=== PATIENT | male | born 1950 | race Two or more races ===

== ENCOUNTER 2024-03-30 11:51 | Emergency (ER) | payer OTHER, SELFPAY ==
[2024-03-30 12:09] VITALS: BP 146/81; PULSE 77; RESP 19; TEMP 36.7; O2SAT 100; BMI 23.3
[2024-03-30 12:39] VITALS: PULSE 84; RESP 18; O2SAT 97; BMI 23.3
--- NOTE | 2024-03-30 12:55 | PC.NURSE ---
Pt. here from home to room 15, pt. states he has been unable to urinate for 2 days, per pt. his son in law put in a cheney on Tuesday for pt. and removed it yesterday, pt. states he has been unable to urinate since. Pt. abdomen is round and distended. Pt. states that he is bed bound. Pt. states he has had a previous heart attack that left him with tremors.
--- NOTE | 2024-03-30 13:00 | EDNOTE_ITS ---
ED Male Genitalurinary RME/HPI General Chief complaint: Urogenital-Male Stated complaint: CAN'T URINATE Time Seen by Provider: 03/30/24 12:19 Arrival date/time: 03/30/24 11:51 RME / HPI RME / HPI Narrative: 74 year old male with history of HFrEF 35% 02/2022, diabetes, hypertension, hyperlipidemia, chronic back pain, sleep apnea, BPH, gout presents to the ED BIBA from home for evaluation of urinary retention and suprapubic abdominal pain beginning yesterday and worsening today. Per medics, family on scene reported 2 days ago Tuesday patient had difficulty urinary and inserted a cheney catheter with relief. However, the catheter was removed yesterday and since then the patient is unable to urinate. Accompanied by suprapubic abdominal pain, described as pressure in sensation, rating as moderate. No other associated symptoms or complaints. Denies fevers. Related Data Home Medications ?Medication ?Instructions ?Recorded ?Confirmed hydrocodone 7.5 mg-acetaminophen 1 tab PO TID PRN Pain 02/24/22 12/27/22 325 mg tablet amiodarone 200 mg tablet 200 mg PO DAILY 08/06/22 12/27/22 finasteride 5 mg tablet 5 mg PO QDAY 08/06/22 12/27/22 hydrochlorothiazide 12.5 mg tablet 12.5 mg PO QAM 08/06/22 12/27/22 baclofen 10 mg tablet 10 mg PO QDAY PRN Muscle Spasm 12/20/22 12/27/22 docusate sodium 100 mg capsule 100 mg PO BID 12/20/22 12/27/22 levetiracetam 750 mg tablet 750 mg PO BID 12/20/22 12/27/22 spironolactone 25 mg tablet 25 mg PO BID 12/20/22 12/27/22 Previous Rx's ?Medication ?Instructions ?Recorded tamsulosin 0.4 mg capsule (Flomax) 0.4 mg PO QDAY #30 caps 07/09/22 amoxicillin 875 mg-potassium 1 tab PO BID #14 tabs 12/20/22 clavulanate 125 mg tablet cephalexin 500 mg capsule 500 mg PO QID #28 caps 04/30/23 ondansetron 8 mg disintegrating 8 mg PO Q8H PRN nausea and 04/30/23 tablet vomiting #20 tabs levofloxacin 500 mg tablet 500 mg PO Q24H 5 days #5 tabs 03/30/24 Allergies Allergy/AdvReac Type Severity Reaction Status Date / Time metformin Allergy Severe CAUSED Verified 12/27/22 08:50 KIDNEY FAILURE Review of Systems Review of Systems Narrative Review of Systems: Gen: No fever, no chills, no weight loss EYES: No discharge, no visual changes, no pain HEENT: No ear pain, no congestion, no sore throat PULM: no shortness of breath, no cough, no congestion CV: No chest pain, no dyspnea on exertion, no palpitations, no chest tightness GI: No nausea, no vomiting, no diarrhea, +pain, no constipation : +urinary retention. No frequency, no urgency,? no dysuria Musc/skel: No joint pain, no back pain Skin: No rash, no ecchymosis, no lesions Neuro: No weakness, no headache Past Medical History Past Medical History NEUROLOGIC: Positive Seizures CARDIAC: Positive Cardiac Disorders, Hypercholesterolemia, Congestive Heart Failure, Edema and Hypertension RESPIRATORY: Positive Pneumonia and Sleep Apnea GASTROINTESTINAL: Positive Gastrointestinal Disorders, Gastroesophageal Reflux Disease and Obesity GENITOURINARY: Positive Genitourinary Disorders, Renal Disease and Benign Prostatic Hyperplasia MUSCULOSKELETAL: Positive Musculoskeletal Disorders, Arthritis and Gout ENDOCRINE: Positive Endocrine Disorders and Diabetes Mellitus Type 2 OTHER HISTORY: Positive Hospitalization, Falls, Chemotherapy and Cancer Family History FAMILY HISTORY: Positive Family Cardiac Disorders and Family Cancer Surgical History SURGICAL: Positive Eye Surgery and Abdominal Surgery Social History SMOKING STATUS: Never smoker SUBSTANCE USE: does not use OCCUPATION: retired audio video mechanic ED Exam Narrative Physical exam: GENERAL APPEARANCE: AxOx4, nontoxic appearing HEENT: NC, AT. MMM. EOMI, clear conjunctiva, oropharynx clear. NECK: Supple without lymphadenopathy. No stiffness or restricted ROM. HEART: Normal rate and regular rhythm, normal S1/S1, no m/r/g LUNGS: CTAB, moving air well. No crackles or wheezes are heard. ABDOMEN: Soft, suprapubic fullness and tenderness, good bowel sounds heard. BACK: No midline C/T/L spine pain or deformity, No CVAT, no obvious deformity. EXTREMITIES: Without cyanosis, clubbing or edema. MUSCULOSKELETAL: FROM of all major joints, no chest tenderness NEUROLOGICAL: Grossly nonfocal. Alert and oriented, moving all 4 extremities. CN not formally tested but appear grossly intact. Skin: Warm and dry without any rash. Course Quality Measures none Orders Category Date Time Status Cheney to [facility] Routine Care 03/30/24 12:18 Ordered Urinalysis Stat Lab 03/30/24 12:54 Completed Reevaluation(s) Reevaluation #1: Patient had improvement after cheney catheter. We reviewed all the results, analysis, and treatment plans. Patient is amenable to discharge. Strict return precautions were outlined. Patient was discharged in stable condition. Time: 14:25 Vital Signs Vital signs: Vital Signs Temperature 98.1 F 03/30/24 12:09 Pulse Rate 77 03/30/24 12:09 Respiratory Rate 19 03/30/24 12:09 Blood Pressure 146/81 H 03/30/24 12:09 Pulse Oximetry (%) 100 03/30/24 12:09 Oxygen Delivery Method Room Air 03/30/24 12:09 Pulse ox is 100% on room air which is adequate. Urogenital - Male MDM Narrative MDM Narrative:: Aubrie Richardson am scribing for and in the presence of Dr. Canales. Patient data External records reviewed:: [facility] previous records (I reviewed ED visit on 04/30/2023) and EMS form Clinical information provided by:: patient and EMS Social determinants that could affect healthcare access:: none Patient has the following chronic illnesses:: HFrEF 35% 02/2022, diabetes, hypertension, hyperlipidemia, chronic back pain, sleep apnea, BPH, gout How is presenting disease/condition affected by chronic disease/condition?: exacerbated by Evaluation data The following diagnostics were reviewed and interpreted by me:: lab results Lab and/or radiology exams considered but not ordered:: None Interpretation Summary: As noted above Medications / Prescriptions Medications or Prescriptions considered but not ordered:: none Medication administrations:: None Consultations Consultation(s) initiated? (list below): No Diagnosis Urogenital Male Differential Diagnosis: urinary tract infection, prostatitis and acute retention of urine Most likely diagnosis given after review of the tests above:: Acute on chronic urinary retention UTI Admission Indicated Admission indicated?: not indicated Admission Request Was there a request for admission?: No Disposition Plan Disposition Plan: Discharge Discharge Attestation Discharge Attestation: The patient and all family members were given an opportunity to ask questions and understood the discharge instructions. Discharge instructions specifically effects, indications for sooner follow up or return to the emergency department, and the expected course of current diagnosis. Patient condition: Stable Discharge Plan Plan Patient Disposition: HOME (Self Care) Prescriptions/Referrals Prescriptions/Med Rec: New levofloxacin 500 mg tablet 500 mg PO Q24H 5 Days Qty: 5 0RF No Action hydrocodone-acetaminophen 7.5-325 mg tablet 1 tab PO TID PRN (Reason: Pain) Patient Comments: TAKE 1 TABLET BY MOUTH EVERY 6 HOURS NEEDED FOR 30 DAYS tamsulosin [Flomax] 0.4 mg capsule 0.4 mg PO QDAY Qty: 30 0RF amiodarone 200 mg tablet 200 mg PO DAILY Patient Comments: TAKE 1 TABLET BY MOUTH EVERY DAY hydrochlorothiazide 12.5 mg Tablet 12.5 mg PO QAM finasteride 5 mg Tablet 5 mg PO QDAY baclofen 10 mg Tablet 10 mg PO QDAY PRN (Reason: Muscle Spasm) docusate sodium 100 mg capsule 100 mg PO BID Patient Comments: TAKE 1 CAPSULE BY MOUTH TWICE DAILY NEEDED levetiracetam 750 mg Tablet 750 mg PO BID spironolactone 25 mg tablet 25 mg PO BID amoxicillin-pot clavulanate 875-125 mg tablet 1 tab PO BID Qty: 14 0RF cephalexin 500 mg capsule 500 mg PO QID Qty: 28 0RF ondansetron 8 mg tablet,disintegrating 8 mg PO Q8H PRN (Reason: nausea and vomiting) Qty: 20 0RF Problem List Clinical Impression: Acute on chronic urinary retention, UTI (urinary tract infection) Patient/Caregiver Discharge Instructions Education Materials: ED Cheney Catheter, Care, ED Urinary Retention, Male, ED Bladder Infection, Male (Adult) Additional Instructions: Follow-up with your primary care doctor in 2 to 3 days for recheck. You can return to the emergency department sooner if symptoms worsen or if he notes any new, concerning issues. Print Language: Kiswahili Stand Alone Forms: Radha Award Info., Patient Portal Info Letter MD Attestation Attestation The patient was seen by the PGY-2. I, the supervising physician, also encountered and examined the patient and remained throughout present during the entire ER visit. Deliberation with the PGY 2, workup, management, treatment, medical decision making, and documentation was formulated. I agree with the plan and documentation.
[2024-03-30 13:01] LABS: Collection Type, Urine Catheter; Squamous Epithelial Cell,Urine 0 /hpf (0-5)
[2024-03-30 13:26] LABS: Bilirubin,Urine Negative (Negative); Blood,Urine Negative (Negative); Clarity,Urine Clear (Clear/Hazy); Color,Urine Lt-Yellow (Lt Yel-Yel); Glucose, Urine Negative (Negative); Ketones,Urine Negative (Negative); Leukocyte Esterase,Urine Positive (Negative); Nitrite,Urine Positive (Negative); Protein,Urine Trace (Neg - Trace); RBC,Urine 3 /hpf (0-3); Specific Gravity,Urine 1.019 (1.001-1.035); Urobilinogen,Urine Negative mg/dL (0.0-1.0); WBC,Urine 84 /hpf (0-5)
[2024-03-30 15:40] VITALS: BP 129/70; PULSE 60; RESP 18; TEMP 36.6; O2SAT 98
== END 2024-03-30 15:40 | disposition home or self-care (01) ==
PROVIDERS: Emergency Provider Emergency Medicine
DX: N40.1 Benign prostatic hyperplasia with lower urinary tract symptoms (principal); R33.8 Other retention of urine; N39.0 Urinary tract infection, site not specified; E11.9 Type 2 diabetes mellitus without complications; I11.0 Hypertensive heart disease with heart failure; I50.22 Chronic systolic (congestive) heart failure; M10.9 Gout, unspecified
CPT/HCPCS: 51702; 81001; 99283

== ENCOUNTER → 2024-05-17 | Outpatient (BNVA) | payer OTHER, MEDICAID, SELFPAY | END | disposition home or self-care (01) | PROVIDERS: PCP Family Medicine; Referring Provider Family Medicine; Visit Provider Urology | DX: N40.1 Benign prostatic hyperplasia with lower urinary tract symptoms (principal); N13.8 Other obstructive and reflux uropathy; Z87.440 Personal history of urinary (tract) infections; E11.42 Type 2 diabetes mellitus with diabetic polyneuropathy; E78.5 Hyperlipidemia, unspecified; E66.9 Obesity, unspecified; Z68.38 Body mass index [BMI] 38.0-38.9, adult; F32.9 Major depressive disorder, single episode, unspecified; F41.9 Anxiety disorder, unspecified; I11.0 Hypertensive heart disease with heart failure; I50.9 Heart failure, unspecified; K21.9 Gastro-esophageal reflux disease without esophagitis; Z99.3 Dependence on wheelchair | CPT/HCPCS: 99203; G0463 ==

== ENCOUNTER 2024-08-11 18:16 | Emergency (ER) | payer OTHER, SELFPAY ==
[2024-08-11 18:20] VITALS: BP 130/75; PULSE 86; RESP 18; TEMP 36.5; O2SAT 95
[2024-08-11 18:21] VITALS: BMI 33.3
--- NOTE | 2024-08-11 18:56 | PD.EDABDPN ---
ED Abdominal Pain RME/HPI General Chief Complaint: Abdominal Pain Stated complaint: ABD PAIN Time seen by provider: 08/11/24 18:56 Arrival date/time: 08/11/24 18:16 This is a 74-year-old male that is brought in by ambulance with complaints of abdominal pain for the past few days and rash to left lower abdomen. Patient also complains of distention and no bowel movement for the past 3 days. Patient usually has about regular bowel movements. History of [place], seizures, , diabetes, hypertension, hyperlipidemia, chronic back pain, sleep apnea, BPH, gout. Patient denies any fever and chills. Patient denies any vomiting diarrhea. Patient complains of nausea. Patient states she has had a cough for the past few days. Related Data Home Medications ?Medication ?Instructions ?Recorded ?Confirmed hydrocodone 7.5 mg-acetaminophen 1 tab PO TID PRN Pain 02/24/22 05/17/24 325 mg tablet amiodarone 200 mg tablet 200 mg PO DAILY 08/06/22 05/17/24 finasteride 5 mg tablet 5 mg PO QDAY 08/06/22 05/17/24 hydrochlorothiazide 12.5 mg tablet 12.5 mg PO QAM 08/06/22 05/17/24 baclofen 10 mg tablet 10 mg PO QDAY PRN Muscle Spasm 12/20/22 05/17/24 docusate sodium 100 mg capsule 100 mg PO BID 12/20/22 05/17/24 levetiracetam 750 mg tablet 750 mg PO BID 12/20/22 05/17/24 spironolactone 25 mg tablet 25 mg PO BID 12/20/22 05/17/24 Previous Rx's ?Medication ?Instructions ?Recorded tamsulosin 0.4 mg capsule (Flomax) 0.4 mg PO QDAY #30 caps 07/09/22 cephalexin 500 mg capsule 500 mg PO TID 7 days #21 caps 08/11/24 sennosides 8.6 mg-docusate sodium 1 tab-cap PO BID PRN constipation 08/11/24 50 mg tablet (Senokot-S) #20 tabs Allergies Allergy/AdvReac Type Severity Reaction Status Date / Time metformin Allergy Severe CAUSED Verified 08/11/24 19:31 KIDNEY FAILURE Review of Systems Review of Systems Systems Reviewed: All systems reviewed, normal except as documented Past Medical History Past Medical History NEUROLOGIC: Positive Seizures CARDIAC: Positive Cardiac Disorders, Hypercholesterolemia, Congestive Heart Failure, Edema and Hypertension RESPIRATORY: Positive Pneumonia and Sleep Apnea GASTROINTESTINAL: Positive Gastrointestinal Disorders, Gastroesophageal Reflux Disease and Obesity GENITOURINARY: Positive Genitourinary Disorders, Renal Disease and Benign Prostatic Hyperplasia MUSCULOSKELETAL: Positive Musculoskeletal Disorders, Arthritis and Gout ENDOCRINE: Positive Endocrine Disorders and Diabetes Mellitus Type 2 OTHER HISTORY: Positive Hospitalization, Falls, Chemotherapy and Cancer Family History FAMILY HISTORY: Positive Family Cardiac Disorders and Family Cancer Surgical History SURGICAL: Positive Eye Surgery and Abdominal Surgery Social History SMOKING STATUS: Never smoker SUBSTANCE USE: does not use OCCUPATION: retired production maintenance mechanic ED Exam Narrative Physical exam: VITAL SIGNS: Reviewed. GENERAL APPEARANCE: Alert and interactive, follows commands, no acute distress HEAD AND FACE: Non-traumatic. ENT: PERRL, conjuctiva pink and clear, eyelid no trauma, Mucous membrane moist. NECK: Supple, nontender, no nuchal rigidity. CHEST: No tenderness, no crepitus, no paradoxical movement, no retractions. LUNGS: Clear, well ventilated, symmetric, no rales, no wheezing, no rhonchi, no stridor, good breath sounds bilaterally. HEART: Regular rate, regular rhythm, no murmur, no gallops. ABDOMEN: Soft, slightly distended, pain to the left lower abdomen. NEUROLOGICAL: Gross motor function intact sensory function intact, Appropriate for age. MUSCULOSKELETAL: low back nontender, full range of motion. EXTREMITIES: No redness no swelling no skin breakdown on bilateral foot and leg. Distal neurovascular status intact bilateral foot SKIN: Color pink, dry, crusted over lesion to left lower abdomen that wraps to his back, painful to touch Course Orders Category Date Time Status CT abdomen pelvis w con Stat Exams 08/11/24 21:18 Stop Req XR abdomen 1V Stat Exams 08/11/24 18:58 Completed XR chest 1V Stat Exams 08/11/24 18:58 Completed CBC Stat Lab 08/11/24 19:43 Completed Comprehensive Metabolic Panel Stat Lab 08/11/24 19:43 Completed Lipase Stat Lab 08/11/24 19:43 Completed Urinalysis, C/S if Indicated Stat Lab 08/11/24 19:55 Completed Urine Culture Stat Lab 08/11/24 19:55 Received Lactulose Syrup [Enulose Syrup] Med 08/11/24 22:53 Discontinued 20 gm PO X1 ONE Sodium Chloride 0.9% 500 ml [Ns] 500 ml Med 08/11/24 21:18 Discontinued IV 999 mls/hr cefTRIAXone [Rocephin] 1,000 mg Med 08/11/24 20:36 Discontinued Lidocaine 1% 20 ml [Xylocaine 1% 20 ML] 2.1 ml IM X1 cefTRIAXone/D5w 1gm IV premix [Rocephin/D5w 1gm IV Med 08/11/24 20:57 Discontinued premix] 1 gm in 50 ml IV X1 Vital Signs Vital signs: Vital Signs Temperature 97.7 F 08/11/24 18:20 Pulse Rate 86 08/11/24 18:20 Respiratory Rate 18 08/11/24 18:20 Blood Pressure 130/75 08/11/24 18:20 Pulse Oximetry (%) 95 08/11/24 18:20 Oxygen Delivery Method Room Air 08/11/24 18:20 Abdominal Pain MDM MDM Narrative MDM Narrative:: chest x ray: FINDINGS: Suspicious for early left base pneumonia Mild prominence left ventricle Right lung clear IMPRESSION: Suspicious for early left base pneumonia abdomen: FINDINGS: Mildly air distended stomach. Mild air in the colon and small bowel, no obstruction No free air IMPRESSION: Mildly air distended stomach. Mild small bowel ileus No obstruction Spoke to patient's daughter at bedside who is patient's air bag buffer. Patient has had this rash/shingles to left lower abdomen for over 1 week. Considered antiviral therapy but typically no benefit antiviral therapy once all lesions have crusted which they have. Did consider steroids. Patient continues to have pain to lower abdomen where lesions were located. Discussed case . Agrees patient can be dc home. Patient given a dose of lactulose and will be sent home with [facility] bathroom. Daughter and patient instructed to come back to emergency room if symptoms change or worsen. Medications / Prescriptions Medication administrations:: Medication Administration History Discontinued Medications Ceftriaxone Sodium 1,000 mg/ (Lidocaine HCl 2.1 ml) 0 mg IM X1 ONE Stop: 08/11/24 20:37 Last Admin: 08/11/24 21:00 Dose: Not Given Documented By: AMANDA Non-Admin Reason: Discontinued Ceftriaxone Sodium/Dextrose (Rocephin/D5w 1gm Iv Premix) 1 gm in 50 mls @ 100 mls/hr IV X1 ONE Stop: 08/11/24 21:26 Last Infusion: 08/11/24 21:38 Dose: Infused Documented By: Admin: 08/11/24 21:08 Dose: 100 mls/hr Documented By: AMANDA Sodium Chloride (Ns) 500 mls @ 999 mls/hr IV .Q31M ONE Stop: 08/11/24 21:48 Last Admin: 08/11/24 22:01 Dose: 999 mls/hr Documented By: AMANDA Lactulose (Lactulose Syrup 20 Gm/30 Ml Udc) 20 gm PO X1 ONE; Protocol Stop: 08/11/24 22:54 Discharge Plan Plan Patient Disposition: HOME (Self Care) Patient condition on transfer: Stable Prescriptions/Referrals Prescriptions/Med Rec: New cephalexin 500 mg capsule 500 mg PO TID 7 Days Qty: 21 0RF sennosides-docusate sodium [Senokot-S] 8.6-50 mg tablet 1 tab-cap PO BID PRN (Reason: constipation) Qty: 20 0RF No Action hydrocodone-acetaminophen 7.5-325 mg tablet 1 tab PO TID PRN (Reason: Pain) Patient Comments: TAKE 1 TABLET BY MOUTH EVERY 6 HOURS NEEDED FOR 30 DAYS tamsulosin [Flomax] 0.4 mg capsule 0.4 mg PO QDAY Qty: 30 0RF amiodarone 200 mg tablet 200 mg PO DAILY Patient Comments: TAKE 1 TABLET BY MOUTH EVERY DAY hydrochlorothiazide 12.5 mg Tablet 12.5 mg PO QAM finasteride 5 mg Tablet 5 mg PO QDAY baclofen 10 mg Tablet 10 mg PO QDAY PRN (Reason: Muscle Spasm) docusate sodium 100 mg capsule 100 mg PO BID Patient Comments: TAKE 1 CAPSULE BY MOUTH TWICE DAILY NEEDED levetiracetam 750 mg Tablet 750 mg PO BID spironolactone 25 mg tablet 25 mg PO BID Referrals: No Primary/Family,Physician [Primary Care Provider] - In 1 week Problem List Clinical Impression: Acute UTI, Pneumonia, Shingles, Constipation Patient/Caregiver Discharge Instructions Discharge Activity: activity as tolerated Education Materials: Treating Pneumonia, Shingles (Herpes Zoster), ED Bladder Infection, Male (Adult) Additional Instructions: Follow up with primary provider in 1-2 days. Come back to ED if symptoms change or worsen Print Language: Spanish Stand Alone Forms: Radha Award Info., Patient Portal Info Letter PA/MANAGER OF FINANCIAL Supervising Physician PA/MANAGER OF FINANCIAL Supervising Physician: [place]
--- NOTE | 2024-08-11 18:58 | XR_ITS ---
Examination: Abdomen AP single view Technique: AP portable supine abdomen, single view Exam date and time: August 11, 2024 1935 hours INDICATIONS: Abdominal distention today. FINDINGS: Mildly air distended stomach. Mild air in the colon and small bowel, no obstruction No free air IMPRESSION: Mildly air distended stomach. Mild small bowel ileus No obstruction
--- NOTE | 2024-08-11 18:58 | XR_ITS ---
Examination: AP chest single view Technique one AP portable semiupright chest single view Date and time: 12/11/2024 1934 hours Comparison August 06, 2022 INDICATION: Chest pain and coughing today. FINDINGS: Suspicious for early left base pneumonia Mild prominence left ventricle Right lung clear IMPRESSION: Suspicious for early left base pneumonia
[2024-08-11 19:10] VITALS: BP 134/74; PULSE 75; RESP 24; O2SAT 81
[2024-08-11 20:00] VITALS: BP 125/79; RESP 22; TEMP 36.6
[2024-08-11 20:00] LABS: Basophils % (Auto) 1 % (0-2.5); Eosinophils # (Auto) 0.1 Thou/mm3 (0.0-0.5); Eosinophils % (Auto) 2 % (0-10); Hematocrit 43.9 % (41.0-53.0); Hemoglobin 14.9 g/dL (13.5-16.0); Immature Granulocytes % (Auto) 0 % (0-0); Immature Granulocytes Auto 0.02 Thou/mm3 (0.00-0.00); Lymphocytes # (Auto) 0.9 Thou/mm3 (1.0-4.8); Lymphocytes % (Auto) 19 % (10-50); Mean Corpuscular HGB Conc 33.9 g/dl (31.0-37.0); Mean Corpuscular Hemoglobin 31.2 pg (25.0-35.0); Mean Corpuscular Volume 92 fL (80-100); Monocytes # (Auto) 0.4 Thou/mm3 (0.0-0.8); Monocytes % (Auto) 9 % (0-12); Neutrophils # (Auto) 3.5 Thou/mm3 (1.8-7.7); Neutrophils % (Auto) 69 % (37-80); Nucleated Red Blood Cell % 0 /100 WBC (0); Platelet Count 130 Thou/mm3 (140-440); Red Blood Count 4.78 Miln/mm3 (4.50-5.90)
[2024-08-11 20:03] LABS: Collection Type, Urine Voided
[2024-08-11 20:10] LABS: Bilirubin,Urine Negative (Negative); Blood,Urine 1+ (Negative); Clarity,Urine Turbid (Clear/Hazy); Color,Urine Yellow (Lt Yel-Yel); Glucose, Urine Negative (Negative); Ketones,Urine Negative (Negative); Leukocyte Esterase,Urine Positive (Negative); Nitrite,Urine Negative (Negative); PH,Urine 6.5 (5.0-7.0); Protein,Urine 1+ (Neg - Trace); RBC,Urine 24 /hpf (0-3); Squamous Epithelial Cell,Urine 2 /hpf (0-5); Urobilinogen,Urine Negative mg/dL (0.0-1.0); WBC,Urine 676 /hpf (0-5)
[2024-08-11 20:11] LABS: Culture Indicated,Urine Yes
[2024-08-11 20:30] LABS: Alanine Aminotransferase 8 U/L (10-49); Albumin, Serum 4.1 gm/dL (3.4-4.8); Albumin/Globulin Ratio 1.4 (1.2-2.2); Alkaline Phosphatase 91 U/L (46-116); Anion Gap 12 (7-16); BUN/Creatinine Ratio 12 Ratio (12-20); Bilirubin,Total 0.5 mg/dL (0.3-1.2); Blood Urea Nitrogen 19 mg/dL (9-23); Calcium 9.5 mg/dL (8.3-10.6); Calcium (Corrected) 9.5 mg/dL (8.5-10.1); Carbon Dioxide 23.4 mMol/L (20.0-31.0); Chloride 100 mMol/L (98-107); Creatinine (Component) 1.6 mg/dL (0.6-1.3); Estimated Creatinine Clearance 43.2 mL/min (>60); Globulin 2.9 gm/dL (2.3-3.5); Glucose 121 mg/dL (74-106); Osmolality,Calculated 273 (275-295); Potassium 4.4 mMol/L (3.4-5.1); Sodium 135 mMol/L (136-145); eGFR 45 See Note
[2024-08-11 21:00] VITALS: BP 126/69; PULSE 62; RESP 21
[2024-08-11] MEDS: cefTRIAXone/D5w 1gm IV premix 1 GM/50 ML BAG IV (21:08)
[2024-08-11 21:19] LABS: Lipase 30 U/L (12-53)
[2024-08-11 22:00] VITALS: BP 128/72; PULSE 60; RESP 17
[2024-08-11] MEDS: SODIUM CHLORIDE 0.9% 500 ML 500 ML 999 ML IV (22:01)
[2024-08-11 23:01] VITALS: BP 141/67; PULSE 60; RESP 11; TEMP 36.8
[2024-08-11] MEDS: LACTULOSE SYRUP 20 GM/30 ML UDC PO (23:11)
[2024-08-12 02:52] VITALS: BP 128/79; PULSE 80; RESP 18; O2SAT 98
== END 2024-08-12 02:41 | disposition home or self-care (01) ==
PROVIDERS: Nurse Practitioner Family; Emergency Provider Emergency Medicine
DX: K56.7 Ileus, unspecified (principal); K31.89 Other diseases of stomach and duodenum; J18.9 Pneumonia, unspecified organism; N39.0 Urinary tract infection, site not specified; B02.9 Zoster without complications
CPT/HCPCS: 36415; 71045; 74018; 80053; 81001; 83690; 85025; 87077; 87086; 87186; 96361; 96365; 99284; J0696; J7040; A9270

== ENCOUNTER 2025-02-22 16:23 | Emergency (ER) | payer OTHER, MEDICAID, SELFPAY ==
[2025-02-22 16:27] VITALS: BP 129/75; PULSE 94; RESP 16; TEMP 36.9; O2SAT 97
--- NOTE | 2025-02-22 16:41 | XR_ITS ---
Examination: CT abdomen and pelvis without contrast. Coronal 3-D reconstructions. Sagittal 2-D reconstructions. Date and time of exam: February 22, 2025, 1730 hours COMPARISON: April 30, 2023 INDICATIONS: Dysuria beginning 2 weeks ago, history bladder calculus CTDI: vol (mGy): 9.3 DLP: (mGycm): 521 Technique: Axial images of the abdomen have been obtained, 3 mm slice thickness Intravenous contrast material has not been administered. Low dose protocols were performed. One or more of the following dose reduction techniques were used; automated exposure control, adjustment of the mA and/or KV according to patient size, use of iterative reconstruction technique. Findings: Atelectasis in the lower lung zones No visualized liver lesions Multiple gallstones Spleen not enlarged No pancreatic or adrenal mass Moderate to advanced scarring involving the kidneys Renal arterial calcification No hydronephrosis or ureteral calculi Heavy abdominal aortic calcification Normal appendix Colonic diverticulosis, no diverticulitis Abundant stool in the rectum with thickening of the rectal wall, consider proctitis Prostatomegaly, 5.4 cm Bladder contracted, prominent wall thickening, 16 mm bladder calculus, pericystic inflammatory change Severe osteopenia Moderate narrowing hip joints IMPRESSION: Moderate to advanced bilateral renal scarring Renal arterial calcification No hydronephrosis or ureteral calculi Severe cystitis pattern 16 mm bladder calculus Abundant stool in the rectum, thickening of the rectal wall, differential would include proctitis
--- NOTE | 2025-02-22 16:43 | PD.EDADULT ---
ED General RME/HPI General Chief complaint: General Adult/Misc Complain Stated complaint: UTI Time Seen by Provider: 02/22/25 16:32 Arrival date/time: 02/22/25 16:23 75-year-old male patient with past medical history of hypertension, BPH seizure disorder, was brought in by EMS for evaluation regarding worsening dysuria. Patient told me that has been having worsening frequency dysuria, for the last 1 week. No fever no vomiting no abdominal pain. Denies any other complaints. Related Data Home Medications ?Medication ?Instructions ?Recorded ?Confirmed hydrocodone 7.5 mg-acetaminophen 1 tab PO TID PRN Pain 02/24/22 05/17/24 325 mg tablet amiodarone 200 mg tablet 200 mg PO DAILY 08/06/22 05/17/24 finasteride 5 mg tablet 5 mg PO QDAY 08/06/22 05/17/24 hydrochlorothiazide 12.5 mg tablet 12.5 mg PO QAM 08/06/22 05/17/24 baclofen 10 mg tablet 10 mg PO QDAY PRN Muscle Spasm 12/20/22 05/17/24 docusate sodium 100 mg capsule 100 mg PO BID 12/20/22 05/17/24 levetiracetam 750 mg tablet 750 mg PO BID 12/20/22 05/17/24 spironolactone 25 mg tablet 25 mg PO BID 12/20/22 05/17/24 Previous Rx's ?Medication ?Instructions ?Recorded tamsulosin 0.4 mg capsule (Flomax) 0.4 mg PO QDAY #30 caps 07/09/22 sennosides 8.6 mg-docusate sodium 1 tab-cap PO BID PRN constipation 08/11/24 50 mg tablet (Senokot-S) #20 tabs cefuroxime axetil 500 mg tablet 500 mg PO BID #14 tabs 02/22/25 Allergies Allergy/AdvReac Type Severity Reaction Status Date / Time metformin Allergy Severe CAUSED Verified 02/22/25 16:53 KIDNEY FAILURE lorazepam (From Ativan) Allergy Verified 02/22/25 16:53 Review of Systems Review of Systems Narrative Review of Systems: Review of system reviewed and within normal limits except mentioned in HPI ED Exam Narrative Physical exam: VITAL SIGNS: Reviewed. GENERAL APPEARANCE: Alert and interactive, follows commands, no acute distress, HEAD AND FACE: Non-traumatic. ENT: PERRL, pink conjunctivitis, eyelid no trauma, Mucous membrane moist. NECK: Supple, nontender, no nuchal rigidity. CHEST: No tenderness, no crepitus, no paradoxical movement, no retractions. LUNGS: Clear, well ventilated, symmetric, no rales, no wheezing, no ronchi, no stridor, good breath sounds bilaterally. HEART: Regular rate, regular rhythm, no murmur, no gallops. ABDOMEN: Soft, positive bowel sounds, nondistended, no guarding, nontender, no rebound, no masses, RECTAL: Deferred. GENITAL: Deferred. NEUROLOGICAL: Gross motor function intact sensory function intact, Appropriate for age. MUSCULOSKELETAL: low back nontender, full range of motion. EXTREMITIES: Nontender, full range of motion. SKIN: Color pink, dry, no rash, no lacerations, no abrasions, no contusions. LYMPHATICS: Deferred. Course Quality Measures none Orders Category Date Time Status Surgical Aide Q4H START 00 Care 02/22/25 17:14 Active In and Out Catheter X1 Care 02/22/25 16:53 Completed Insert IV NOW Care 02/22/25 17:[address] abdomen pelvis wo con Stat Exams 02/22/25 16:41 Completed CBC [CBC] Stat Lab 02/22/25 17:50 Completed CMP [Comprehensive Metabolic Panel] Stat Lab 02/22/25 17:50 Completed UA, C/S IF [Urinalysis, C/S if Indicated] Stat Lab 02/22/25 18:55 Completed Urine Culture Stat Lab 02/22/25 18:55 Received Ibuprofen Tab [Motrin Tab] Med 02/22/25 16:42 Discontinued 800 mg PO X1 ONE Ringers Lactated 1000 ml [Lactated Ringers] 1,000 ml Med 02/22/25 16:42 Discontinued IV 999 mls/hr cefTRIAXone/D5w 1gm IV premix [Rocephin/D5w 1gm IV Med 02/22/25 20:34 Discontinued premix] 1 gm in 50 ml IV X1 Vital Signs Vital signs: Vital Signs Temperature 98.5 F 02/22/25 16:27 Pulse Rate 94 02/22/25 16:27 Respiratory Rate 16 02/22/25 16:27 Blood Pressure 129/75 02/22/25 16:27 Pulse Oximetry (%) 97 02/22/25 16:27 Oxygen Delivery Method Room Air 02/22/25 16:27 Discharge Plan Plan Patient Disposition: HOME (Self Care) Discharge Disposition comment: stable Prescriptions/Referrals Prescriptions/Med Rec: New cefuroxime axetil 500 mg tablet 500 mg PO BID Qty: 14 0RF No Action hydrocodone-acetaminophen 7.5-325 mg tablet 1 tab PO TID PRN (Reason: Pain) Patient Comments: TAKE 1 TABLET BY MOUTH EVERY 6 HOURS NEEDED FOR 30 DAYS sennosides-docusate sodium [Senokot-S] 8.6-50 mg tablet 1 tab-cap PO BID PRN (Reason: constipation) Qty: 20 0RF tamsulosin [Flomax] 0.4 mg capsule 0.4 mg PO QDAY Qty: 30 0RF amiodarone 200 mg tablet 200 mg PO DAILY Patient Comments: TAKE 1 TABLET BY MOUTH EVERY DAY hydrochlorothiazide 12.5 mg Tablet 12.5 mg PO QAM finasteride 5 mg Tablet 5 mg PO QDAY baclofen 10 mg Tablet 10 mg PO QDAY PRN (Reason: Muscle Spasm) docusate sodium 100 mg capsule 100 mg PO BID Patient Comments: TAKE 1 CAPSULE BY MOUTH TWICE DAILY NEEDED levetiracetam 750 mg Tablet 750 mg PO BID spironolactone 25 mg tablet 25 mg PO BID Referrals: No Primary/Family,Physician [Primary Care Provider] - In 1 week Problem List Clinical Impression: UTI (urinary tract infection) Patient/Caregiver Discharge Instructions Discharge Activity: activity as tolerated Education Materials: Understanding Urinary Tract ... Additional Instructions: Thank you for the opportunity for serving you today. You are stable for discharged . You are advised to: Follow-up with your PCP in 1 to 2 days Return to ED for worsening of symptoms Increase oral fluids Take medication as prescribed Print Language: Kinyarwanda Stand Alone Forms: Radha Award Info., Patient Portal Info Letter PA/MEY Supervising Physician MARY/MEY Supervising Physician: MD Benito MDM Narrative MDM hospital course (for use when minimal MDM required): 75-year-old male patient with past medical history of hypertension, BPH seizure disorder, was brought in by EMS for evaluation regarding worsening dysuria. Patient told me that has been having worsening frequency dysuria, for the last 1 week. No fever no vomiting no abdominal pain. Denies any other complaints. CBC came back with no leukocytosis, urinalysis positive for UTI, CT scan of the abdomen pelvis showed Moderate to advanced bilateral renal scarring Renal arterial calcification No hydronephrosis or ureteral calculi Severe cystitis pattern 16 mm bladder calculus Abundant stool in the rectum, thickening of the rectal wall, differential would include proctitis Patient received IV fluids, IV ceftriaxone, and will be sent home on cefuroxime p.o. Stable discharge home Medication Administration(s) Medication Administration History Discontinued Medications Lactated Ringer's (Lactated Ringers) 1,000 mls @ 999 mls/hr IV .Q1H1M ONE Stop: 02/22/25 17:42 Last Infusion: 02/22/25 20:27 Dose: Infused Documented By: Admin: 02/22/25 17:57 Dose: 999 mls/hr Documented By: JOVANNI Ceftriaxone Sodium/Dextrose (Rocephin/D5w 1gm Iv Premix) 1 gm in 50 mls @ 100 mls/hr IV X1 ONE Stop: 02/22/25 21:03 Last Infusion: 02/22/25 21:16 Dose: Infused Documented By: Admin: 02/22/25 20:45 Dose: 100 mls/hr Documented By: MAURO Ibuprofen (Ibuprofen Tab 400 Mg Tablet) 800 mg PO X1 ONE Stop: 02/22/25 16:43 Last Admin: 02/22/25 17:55 Dose: 800 mg Documented By: JOVANNI
[2025-02-22 16:54] VITALS: PULSE 86; RESP 17; O2SAT 95; BMI 27.4
[2025-02-22 17:52] VITALS: BP 112/67; PULSE 72; RESP 15; TEMP 36.9; O2SAT 97
[2025-02-22] MEDS: IBUPROFEN TAB 400 MG TABLET 800 MG PO (17:55)
[2025-02-22] MEDS: RINGERS LACTATED 1000 ML 1,000 ML 999 ML IV (17:57)
[2025-02-22 18:00] LABS: Basophils # (Auto) 0.0 Thou/mm3 (0.0-0.2); Basophils % (Auto) 1 % (0-2.5); Eosinophils # (Auto) 0.0 Thou/mm3 (0.0-0.5); Eosinophils % (Auto) 1 % (0-10); Hematocrit 44.1 % (41.0-53.0); Hemoglobin 14.8 g/dL (13.5-16.0); Immature Granulocytes Auto 0.02 Thou/mm3 (0.00-0.00); Lymphocytes # (Auto) 0.7 Thou/mm3 (1.0-4.8); Lymphocytes % (Auto) 15 % (10-50); Mean Corpuscular HGB Conc 33.6 g/dl (31.0-37.0); Mean Corpuscular Hemoglobin 30.6 pg (25.0-35.0); Mean Corpuscular Volume 91 fL (80-100); Monocytes # (Auto) 0.4 Thou/mm3 (0.0-0.8); Monocytes % (Auto) 10 % (0-12); Neutrophils # (Auto) 3.2 Thou/mm3 (1.8-7.7); Neutrophils % (Auto) 73 % (37-80); Nucleated Red Blood Cell # 0.00 Thou/mm3 (0.00-0.00); Nucleated Red Blood Cell % 0 /100 WBC (0); Platelet Count 120 Thou/mm3 (140-440); RDW Standard Deviation 43.6 fL (35.1-43.9); Red Blood Count 4.84 Miln/mm3 (4.50-5.90); White Blood Count 4.3 Thou/mm3 (3.8-10.6)
[2025-02-22 18:31] LABS: Alanine Aminotransferase 9 U/L (10-49); Albumin, Serum 3.6 gm/dL (3.4-4.8); Albumin/Globulin Ratio 1.2 (1.2-2.2); Alkaline Phosphatase 83 U/L (46-116); Anion Gap 9 (7-16); Aspartate Amino Transferase 14 U/L (0-34); BUN/Creatinine Ratio 15 Ratio (12-20); Bilirubin,Total 0.5 mg/dL (0.3-1.2); Blood Urea Nitrogen 21 mg/dL (9-23); Calcium 8.7 mg/dL (8.3-10.6); Calcium (Corrected) 9.0 mg/dL (8.5-10.1); Carbon Dioxide 26.0 mMol/L (20.0-31.0); Chloride 107 mMol/L (98-107); Creatinine (Component) 1.4 mg/dL (0.6-1.3); Estimated Creatinine Clearance 44.4 mL/min (>60); Globulin 3.0 gm/dL (2.3-3.5); Glucose 130 mg/dL (74-106); Osmolality,Calculated 288 (275-295); Potassium 4.4 mMol/L (3.4-5.1); Sodium 142 mMol/L (136-145); Total Protein 6.6 gm/dL (5.7-8.2); eGFR 53 See Note
[2025-02-22 19:06] VITALS: BP 126/64; PULSE 86; RESP 17; TEMP 36.9; O2SAT 98
[2025-02-22 19:31] LABS: Collection Type, Urine Clean Catch
[2025-02-22 19:46] LABS: Bilirubin,Urine Negative (Negative); Blood,Urine 3+ (Negative); Clarity,Urine Turbid (Clear/Hazy); Color,Urine Yellow (Lt Yel-Yel); Glucose, Urine Negative (Negative); Hyaline Casts,Urine < 1 /hpf (0-1); Ketones,Urine Trace (Negative); Leukocyte Esterase,Urine Positive (Negative); Nitrite,Urine Positive (Negative); PH,Urine 6.0 (5.0-7.0); Protein,Urine 1+ (Neg - Trace); RBC,Urine 140 /hpf (0-3); Specific Gravity,Urine 1.024 (1.001-1.035); Squamous Epithelial Cell,Urine 3 /hpf (0-5); Urobilinogen,Urine Negative mg/dL (0.0-1.0); WBC,Urine 159 /hpf (0-5)
[2025-02-22 19:48] LABS: Culture Indicated,Urine Yes
[2025-02-22] MEDS: cefTRIAXone/D5w 1gm IV premix 1 GM/50 ML BAG IV (20:45)
[2025-02-22 21:58] VITALS: BP 159/84; PULSE 63; RESP 18; TEMP 36.8; O2SAT 97
== END 2025-02-22 22:23 | disposition home or self-care (01) ==
PROVIDERS: Nurse Practitioner Family; Emergency Provider Family Medicine
DX: N39.0 Urinary tract infection, site not specified (principal); N40.0 Benign prostatic hyperplasia without lower urinary tract symptoms; N21.0 Calculus in bladder; K62.89 Other specified diseases of anus and rectum; N28.89 Other specified disorders of kidney and ureter
CPT/HCPCS: 36415; 51701; 74176; 80053; 81001; 85025; 87077; 87086; 87186; 96361; 96365; 99284; J0696; J7120; A9270